=== PATIENT | male | born 1975 | race African-American/Black ===

== ENCOUNTER 2019-08-15 16:33 | Inpatient (IN) | payer MEDICAID ==
[~2019-08-15] VITALS: Ht 185.4 cm; Wt 83.5 kg
[2019-08-15] MEDS ORDERED: FIBER-LAX625 MG PO (16:46)
[2019-08-15] MEDS ORDERED: REGLAN10 MG PO (16:46)
[2019-08-15] MEDS ORDERED: MINERAL OIL PO (16:46)
[2019-08-15] MEDS ORDERED: ENSURE PO (16:46)
[2019-08-15] MEDS ORDERED: CHRONULAC30 ML PO (16:46)
[2019-08-15] MEDS ORDERED: FIBERCON625 MG PO (16:47)
[2019-08-15] MEDS ORDERED: PHENOBARBITAL32.4 MG PO (16:47)
[2019-08-15] MEDS ORDERED: DILANTIN100 MG PO (16:47)
[2019-08-15] MEDS ORDERED: OMEPRAZOLE20 M1 PO (16:48)
[2019-08-15] MEDS ORDERED: PHENOBARBITAL97.2 MG PO (16:48)
[2019-08-15] MEDS ORDERED: KEPPRA1000 MG PO (16:48)
[2019-08-15 17:21] LABS: BASOPHILS 0.5 % (0-2); EOSINOPHILS 1.4 % (0-7); HEMATOCRIT 41.6 % (42.0-54.0); HEMOGLOBIN 13.3 g/dL (13.5-17.5); LYMPHOCYTES 41.4 % (15-50); MCH 28.8 pg (26.0-34.0); MEAN PLATELET VOLUME 9.9 fL (7.4-10.4); MONOCYTES 12.8 % (2-11); NEUTROPHILS 43.9 % (40-80); PLATELET COUNT 234 10x3/uL (130-400); RBC 4.62 10x6/uL (4.20-6.10); RDW 14.5 % (11.5-14.5); WBC 4.2 10x3/uL (4.8-10.8)
[2019-08-15 18:06] VITALS: BP 118/82
[2019-08-15 18:08] LABS: CALC OSMOLALITY 271 mosm/kg (275-300); CALCIUM 8.2 mg/dL (8.5-10.1); CARBON DIOXIDE 26.1 mmol/L (21.0-32.0); CHLORIDE - SERUM 106 mmol/L (98-107); CREATININE - SERUM 0.9 mg/dL (0.6-1.3); GLUCOSE 90 mg/dL (74-106); POTASSIUM - SERUM 4.8 mmol/L (3.5-5.1); SODIUM 137 mmol/L (136-145); UREA NITROGEN 6 mg/dL (7-18); eGFR NON AFRICAN AMERICAN > 90 mL/min (90-120)
[2019-08-15 18:15] LABS: BILIRUBIN NEGATIVE (NEGATIVE); GLUCOSE NEGATIVE (NEGATIVE); KETONE NEGATIVE (NEGATIVE); NITRITE NEGATIVE (NEGATIVE); UROBILINOGEN NORMAL (NORMAL)
[2019-08-15 18:17] LABS: ALBUMIN 3.8 g/dL (3.4-5.0); ALKALINE PHOSPHATASE 198 U/L (30-120); ALT (SGPT) 42 U/L (10-68); AMYLASE - SERUM 34 U/L (25-115); BILIRUBIN - TOTAL 0.12 mg/dL (0.2-1.3); LIPASE 72 U/L (73-393); PROTEIN - SERUM 7.1 g/dL (6.4-8.2); TROPONIN-I < 0.017 ng/mL (0.000-0.060)
[2019-08-15 18:43] VITALS: BP 130/77
--- NOTE | 2019-08-15 19:10 | NUR ---
PT REPORTS HE MISSED HIS SECOND DOSE OF HOME MEDICATION KEPPRA 1000MG PO TODAY. EDP NOTIFIED.
--- NOTE | 2019-08-15 21:50 | NUR ---
PATIENT ARRIVED ON FLOOR VIA BED ACCOMPANIED BY ER STAFF. NO S/S OF ACUTE DISTRESS. PATIENT COMPLAINS OF PAIN, AND THERE ARE NO PAIN MEDS ORDERED. CALLED ER TO GET THE DOCTOR TO PUT IN SOME PAIN MEDICATION, WILL CHECK TO SEE IF IT IMPLEMENTED. PATIENT HAS IV IN LEFT HAND, NORMAL SALINE @ 125 ML/HR. IV IS PATENT WITHOUT REDNESS, SWELLING, OR TENDERNESS. PATIENT HAS NG-TUBE IN RIGHT NOSTRIL ON LOW-INTERMITTENT SUCTION. PATIENT AMBULATES TO BATHROOM WITH MINIMAL ASSISTANCE. CALL LIGHT WITHIN REACH. WILL CONTINUE TO MONITOR.
--- NOTE | 2019-08-15 22:26 | NUR ---
DR. MENENDEZ NOTIFIED AND REVIEWED PT'S BEHAVIOR AND ASSESSMENT RESULTS. PT IS A LOW RISK PER DR. MENENDEZ. DR. MENENDEZ STATED TO GIVE RESOURCES TO PT AT TIME OF DISCHARGE. NO FUTHER ORDERS AT THIS TIME. RESOURCES REVIEWED WITH PT AND HE VERBALIZED UNDERSTANDING.
[2019-08-16 01:38] VITALS: BP 140/71; BP 160/82
[2019-08-16 07:04] LABS: BASOPHILS 0.2 % (0-2); EOSINOPHILS 0.9 % (0-7); HEMATOCRIT 40.4 % (42.0-54.0); HEMOGLOBIN 12.7 g/dL (13.5-17.5); IMMATURE GRANULOCYTES 0.2 % (0-5); LYMPHOCYTES 30.2 % (15-50); MCH 28.4 pg (26.0-34.0); MCHC 31.4 g/dL (31.0-37.0); MCV 90.4 fL (80.0-100.0); MEAN PLATELET VOLUME 9.6 fL (7.4-10.4); MONOCYTES 8.9 % (2-11); NEUTROPHILS 59.6 % (40-80); PLATELET COUNT 232 10x3/uL (130-400); RBC 4.47 10x6/uL (4.20-6.10); RDW 14.5 % (11.5-14.5); WBC 4.5 10x3/uL (4.8-10.8)
[2019-08-16 07:31] LABS: APTT 21.9 SECONDS (22.8-39.4); INR 1.09 (0.85-1.17)
[2019-08-16 07:33] LABS: ALBUMIN 3.5 g/dL (3.4-5.0); ALKALINE PHOSPHATASE 182 U/L (30-120); ALT (SGPT) 40 U/L (10-68); AMYLASE - SERUM 33 U/L (25-115); BILIRUBIN - TOTAL 0.29 mg/dL (0.2-1.3); CALC OSMOLALITY 275 mosm/kg (275-300); CALCIUM 7.8 mg/dL (8.5-10.1); CARBON DIOXIDE 28.3 mmol/L (21.0-32.0); CHLORIDE - SERUM 107 mmol/L (98-107); GLUCOSE 84 mg/dL (74-106); MAGNESIUM - SERUM 2.3 mg/dL (1.8-2.4); PHOSPHOROUS 3.4 mg/dL (2.5-4.9); POTASSIUM - SERUM 4.4 mmol/L (3.5-5.1); PROTEIN - SERUM 6.9 g/dL (6.4-8.2); SODIUM 140 mmol/L (136-145); UREA NITROGEN 6 mg/dL (7-18); eGFR NON AFRICAN AMERICAN 87 mL/min (90-120)
[2019-08-16 07:36] LABS: LIPASE 52 U/L (73-393)
[2019-08-16 08:00] VITALS: BP 121/78
--- NOTE | 2019-08-16 08:00 | NUR ---
ASSESSMENT PER FLOW SHEET. PATIENT IS WITHOUT DISTRESS.CALL LIGHT IN REACH.
[2019-08-16 11:45] VITALS: BMI 24.2
[2019-08-16 15:18] VITALS: Ht 185.4 cm; Wt 83.5 kg
[2019-08-16 15:42] VITALS: BP 125/88
--- NOTE | 2019-08-16 16:55 | NUR ---
HAD PASSED VERY LARGE AMOUNTS OF STOOL. PATIENT WANTS NGT OUT AND WANTS FOOD. HE IS WITHOUT DISRESS. MONITOR
[2019-08-16 17:14] LABS: UDS - AMPHET NEGATIVE QUAL (NEGATIVE); UDS - BARB POSITIVE QUAL (NEGATIVE); UDS - BENZO NEGATIVE QUAL (NEGATIVE); UDS - COCAINE NEGATIVE QUAL (NEGATIVE); UDS - OPIATE NEGATIVE QUAL (NEGATIVE); UDS - PCP NEGATIVE QUAL (NEGATIVE); UDS - THC NEGATIVE QUAL (NEGATIVE)
--- NOTE | 2019-08-16 17:44 | NUR ---
REFUSES ICE CHIPS,SIPS OF WATER AND POPSICLES. WANTS ENSURE AND IS UPSET.
--- NOTE | 2019-08-16 19:00 | NUR ---
ALERT AND ORIENTED. GUARD AT BEDSIDE. PATIENT STATES HE JUST ATE IS TOLERATING DIET. DENIES NEEDS AT THIS TIME. LEFT HAND IV THAT IS INFUSING NS. CALL LIGHT CLOSE. CPOC.
[2019-08-16 20:00] VITALS: BP 143/75
--- NOTE | 2019-08-16 20:00 | NUR ---
STATES STOMACH IS BEGINNING TO GET UPSET. BOWEL SOUNDS ARE ACTIVE. PATIENT REQUESTS TO BE UNHOOKED FROM IV MACHINE SO HE CAN GO TO THE BATHROOM.
--- NOTE | 2019-08-16 20:10 | NUR ---
RETURNED TO BED AFTER HAVING SMALL VARGHESE COLORED STOOL. REQUESTING MORPHINE FOR PAIN 01/02. ADMINISTERED PER ORDER. WELL SCHEDULED PROTONIX. PATIENT DENIES FURTHER NEEDS AT THIS TIME. CALL LIGHT CLOSE. GUARD REMAINS AT BEDSIDE. CPOC.
[2019-08-17 00:10] VITALS: BP 130/64
--- NOTE | 2019-08-17 02:06 | NUR ---
RESTING WITH NO SIGNS OR SYMPTOMS OF DISTRESS AT THIS TIME. GUARD REMAINS AT BEDSIDE. CALL LIGHT CLOSE. CPOC.
[2019-08-17 05:16] VITALS: BP 128/70
[2019-08-17 06:10] LABS: BASOPHILS 0.4 % (0-2); EOSINOPHILS 1.1 % (0-7); HEMATOCRIT 36.5 % (42.0-54.0); HEMOGLOBIN 11.6 g/dL (13.5-17.5); IMMATURE GRANULOCYTES 0.2 % (0-5); LYMPHOCYTES 28.6 % (15-50); MCH 28.6 pg (26.0-34.0); MCHC 31.8 g/dL (31.0-37.0); MCV 89.9 fL (80.0-100.0); MONOCYTES 12.2 % (2-11); NEUTROPHILS 57.5 % (40-80); PLATELET COUNT 222 10x3/uL (130-400); RBC 4.06 10x6/uL (4.20-6.10); RDW 14.5 % (11.5-14.5); WBC 4.5 10x3/uL (4.8-10.8)
[2019-08-17 06:58] LABS: ALBUMIN 3.1 g/dL (3.4-5.0); ALKALINE PHOSPHATASE 168 U/L (30-120); ALT (SGPT) 34 U/L (10-68); CALC OSMOLALITY 277 mosm/kg (275-300); CARBON DIOXIDE 25.6 mmol/L (21.0-32.0); CHLORIDE - SERUM 108 mmol/L (98-107); GLUCOSE 123 mg/dL (74-106); POTASSIUM - SERUM 4.4 mmol/L (3.5-5.1); PROTEIN - SERUM 6.2 g/dL (6.4-8.2); SODIUM 140 mmol/L (136-145); UREA NITROGEN 7 mg/dL (7-18); eGFR NON AFRICAN AMERICAN 87 mL/min (90-120)
--- NOTE | 2019-08-17 07:52 | NUR ---
reviewed small bowel series order 08/[address] matthew radiologist ON 08/[address] FROM 08/14, NO OBSTRUCTION SEEN, BARIUM TYPICALLY NOT GIVEN TO PT W CONSTIPATION. CALLED BREVING/ BREVING VERBAL ORDER TO CANCEL
[2019-08-17 08:00] VITALS: BP 94/60
--- NOTE | 2019-08-17 08:00 | NUR ---
ASSESSMENT PER FLOW SHEET. PATIENT STATES STILL HAVING SOME PAIN IN ABDOMEN.MILD DISTENTION NOTED,BUT ABDOMEN IS SOFT.NO NAUSEA DURING NIGHT. MONITOR
[2019-08-17 12:00] VITALS: BP 131/83
[2019-08-17 16:00] VITALS: BP 103/67
--- NOTE | 2019-08-17 16:31 | OP ---
PATIENT NAME: ESTHER ZHANG MEDICAL RECORD: [id number] LOCATION:[id number] ADMISSION DATE:08/15/19 SURGEON: ARIC WADDELL MD DATE OF OPERATION: 08/15/2019 PREOPERATIVE DIAGNOSIS: Large bowel obstruction, rule out obstructing rectal mass versus volvulus. POSTOPERATIVE DIAGNOSES: No obstructing or nearly obstructing colon or rectal mass or volvulus. PROCEDURES: Colonoscopy to the hepatic flexure. SURGEON: Aric Waddell MD DOUGHNUT MAKER: None. BLOOD LOSS: Minimal. ANESTHESIA: General endotracheal. COMPLICATIONS: None. As the patient is considered to have a bowel obstruction, we performed this procedure under general endotracheal anesthesia in order to protect the airway. This was an unprepped colonoscopy. OPERATIVE COURSE: The patient was conveyed to the operating room urgently on 08/16/2019. General anesthesia was induced by the anesthesia staff. The patient was placed in the Gomez position. A digital rectal examination was performed. The patient has large protruding hemorrhoids and they are grade III internal hemorrhoidal prolapse. A colonoscope was inserted through the anus. It was easily advanced to the hepatic flexure. I did not advance it further for fear that it may cause a perforation and also I was able to identify that the patient does not have a sigmoid volvulus and did not appear to have an obstructing or nearly obstructing distal large bowel mass. The endoscope was then withdrawn under direct vision. The patient was then extubated and conveyed to post-anesthesia care unit where he was in stable condition. I am going to plan for a Gastrografin small bowel follow-through tomorrow and going to place the patient on a prokinetic agent (Reglan) overnight. TRANSINT:[id number] Voice Confirmation ID: [id number] DOCUMENT ID: [id number] ARIC WADDELL MD at 1631 CC: [id number] DICTATION DATE: 08/16/191526 SALES AND MARKETING ADMINISTRATOR: 08/16/192216 ADM IN [place] [id number] [place] [id number]
--- NOTE | 2019-08-17 17:13 | NUR ---
REPORT CALLED TO [facility],SPOKE WITH MARY LOU MADRID
--- NOTE | 2019-08-17 18:22 | NUR ---
STATES NO BM AFTER MAG CITRATE. STATES PASSING LOTS OF GAS. WISHES FOR TO BE CALLED.PAGE TO DR. WADDELL.
--- NOTE | 2019-08-17 18:30 | NUR ---
CALL BACK FROM DR. WADDELL,PATIENT WILL DC BACK TO [facility] TODAY. NO FURTHER ORDERS.
--- NOTE | 2019-08-17 18:43 | NUR ---
IV DCD WITH CATH TIP INTACT.DISCHARGE INSTRUCTIONS,STATES UNDERSTANDING.GUARD AT BEDSIDE
--- NOTE | 2019-08-17 19:09 | NUR ---
LEFT UNIT WITH GUARDS AT SIDE FOR TRANSPORT TO [facility]
== END 2019-08-17 19:10 | DRG 392 ==
LOC: OBSVTIME → D.ER 16:33 → OBSVTIME 20:34 → D.ER 20:34 → D.MS 20:34
PROVIDERS: Family Medicine; ADMIT Internal Medicine Nephrology; ATTEND Internal Medicine Nephrology
PROC: 0DJD8ZZ Inspection of Lower Intestinal Tract, Via Natural or Artificial Opening Endoscopic (ICD-10-PCS; principal; 2019-08-15)
DX: K59.00 Constipation, unspecified (principal); N17.9 Acute kidney failure, unspecified; D64.9 Anemia, unspecified; G40.909 Epilepsy, unspecified, not intractable, without status epilepticus; K21.9 Gastro-esophageal reflux disease without esophagitis; F31.9 Bipolar disorder, unspecified